=== PATIENT | male | born 1975 | race Two or more races ===

== ENCOUNTER 2023-02-22 06:10 | Day surgery (SDC) | payer OTHER ==
[2023-02-22] MEDS ORDERED: PEPCID AC20 MG PO (09:44)
== END 2023-02-22 12:30 | disposition home or self-care (01) ==
LOC: AMB-ENDOS 06:10
PROVIDERS: ATTEND Surgery
DX: K29.50 Unspecified chronic gastritis without bleeding (principal); B96.81 Helicobacter pylori [H. pylori] as the cause of diseases classified elsewhere; R10.13 Epigastric pain; E66.01 Morbid (severe) obesity due to excess calories; K29.80 Duodenitis without bleeding; K44.9 Diaphragmatic hernia without obstruction or gangrene